=== PATIENT | female | born 1935 | race Caucasian/White ===

== ENCOUNTER 2016-05-19 10:50 | Emergency (ER) | payer MEDICARE, OTHER ==
[~2016-05-19] VITALS: Ht 162.6 cm; Wt 64.0 kg
[~2016-05-19 10:50] MED LIST: CEPH500C3 PO; ECASA PO; EZET10; MECL25 PO; TAB-TAB; ZOFR4TAB3 SL; [UNRECOGNIZED DRUG - CODE]
[2016-05-19 10:57] VITALS: BP 132/68; PULSE 84; RESP 16; TEMP 98.9
[2016-05-19] MEDS ORDERED: IBUPROFEN 800 MG TAB PO ONE (11:15)
--- NOTE | 2016-05-19 11:18 | PD ---
HPI Chief Complaint: Injury Time Seen by Provider: 11:14 Travel History International Travel<30 days: No Contact w/Intl Traveler<30days: No Traveled to known affect area: No History of Present Illness HPI Patient is an 80-year-old female who presents him for evaluation of left knee pain. Patient states she tripped on Saturday "feeling a pop". Since that time she's had painful range of motion with flexion and extension. She is able to bear weight and does perform her normal ADLs. She states the pain is a 10 out of 10 when she is ambulating. She also reports that her left lower leg has been swollen since she tripped. Patient reports a history of peripheral artery disease with stent placement. She is currently taking Plavix. She denies any head injury, loss of consciousness, she states she did not completely fall, she caught herself. She denies any chest pain, shortness of breath, back pain, abdominal pain. PFSH Past Medical History Hx Anticoagulant Therapy: Yes (plavix, asa 81mg) Cancer: No Cardiovascular Problems: Yes (htn on meds) High Cholesterol: Yes COPD: Yes Diverticulitis: Yes Endocrine: No Genitourinary: No Hypertension: Yes Musculoskeletal: No Neurologic: Yes Reproductive: No Respiratory: Yes (copd) ?: Not Past Surgical History Abdominal Surgery: Yes (COLON>DIVERTICULITIS) Appendectomy: Yes (1948) Eye Surgery: Yes (LASIK X 9 TO BILATERAL EYES) Genitourinary Surgery: Yes (BLADDER REPAIR) Hysterectomy: Yes Social History Alcohol Use: Yes (1-2 BEERS/DAY) Tobacco Use: No Substance Use: No Allergies-Medications (Allergen,Severity, Reaction): Coded Allergies: No Known Allergies (Verified , 05/19/16) Reported Meds & Prescriptions Reported Meds & Active Scripts Active Reported [cholesterol med] Lisinopril 10 Mg Tab 10 Mg PO DAILY Plavix (Clopidogrel Bisulfate) 75 Mg Tab 75 Mg PO DAILY Review of Systems Except as stated in HPI: all other systems reviewed are Neg Musculoskeletal: Positive: Myalgias, Arthralgias, Limited ROM, Edema, Pain Physical Exam Narrative GENERAL: Well-nourished, well-developed patient. SKIN: Warm and dry. HEAD: Normocephalic. EYES: No scleral icterus. No injection or drainage. NECK: Supple, trachea midline. No JVD or lymphadenopathy. CARDIOVASCULAR: Regular rate and rhythm without murmurs, gallops, or rubs. RESPIRATORY: Breath sounds equal bilaterally. No accessory muscle use. GASTROINTESTINAL: Abdomen soft, non-tender, nondistended. MUSCULOSKELETAL: No cyanosis, edema noted to the left anterior knee, and left lower leg. Positive pedal pulses. Decreased range of motion with flexion and extension. No leg length discrepancy noted. BACK: Nontender without obvious deformity. No CVA tenderness. Data Data Last Documented VS Vital Signs Date Time Temp Pulse Resp B/P Pulse Ox O2 Delivery O2 Flow Rate FiO2 05/19/16 10:57 98.9 84 16 132/68 Orders Knee, Complete (4vws) (05/19/16 ) Ibuprofen (Motrin) (05/19/16 11:15) Us Leg Venous Doppler (05/19/16 ) Ice/Cold Pack (05/19/16 11:43) MDM Medical Decision Making Medical Screen Exam Complete: Yes Emergency Medical Condition: Yes Interpretation(s) Last Impressions Knee X-Ray 05/19/16 0000 Signed Impressions: Service Date/Time: Thursday, May 19, 2016 11:21 - CONCLUSION: Small joint effusion. Mild osteoarthritis without fracture. Chondrocalcinosis. Won Miller MD Vital Signs Date Time Temp Pulse Resp B/P Pulse Ox O2 Delivery O2 Flow Rate FiO2 05/19/16 10:57 98.9 84 16 132/68 Differential Diagnosis Sprain versus strain versus fracture versus contusion versus DVT versus other Narrative Course Patient is an 80-year-old female who presented to emergency department for evaluation of left knee pain that occurred as result after tripping on Saturday. Left knee is swollen anteriorly, there is decreased range of motion. Patient has a history of PAD but does have a palpable pedal pulse. There is edema noted to the left lower leg however this started after the injury, making it less likely for patient to have a DVT. She is currently on Plavix and reports compliance. She is not taking any medications to alleviate the pain, she has not used ice or heat either. She has been applying an Rashi wrap. Imaging ordered and pending. Imaging of the left knee shows a small joint effusion with osteoporosis, no fracture identified. Due to swelling in the lower leg venous Doppler ultrasound is ordered. Discussed with my attending physician. 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 Patient is encouraged to rest, ice, elevate extremity. Patient will need to follow-up with her primary doctor or orthopedic surgeon for further evaluation and management. She is encouraged to take acetaminophen or ibuprofen as needed and as directed for pain. She is encouraged to emergency department for any new or worsening symptoms. Patient verbalized understanding of instructions. Patient stable for discharge. Diagnosis Primary Impression: Knee effusion, left Referrals: Orthopaedic Surgeon Primary Care Physician Patient Instructions: General Instructions, Knee Pain (ED), Knee Sprain (GEN), Swollen Knee Joint (GEN) Additional Instructions: Follow-up with your primary doctor Follow-up with orthopedic surgeon Alternate heat and ice to affected area, continue range of motion exercises, elevate extremity Return to emergency department for any new or worsening symptoms Take [id number] acetaminophen or ibuprofen as needed and as directed for pain Med/Other Pt SpecificInfo: No Change to Meds Disposition: 01 DISCHARGE HOME Condition: Stable sIidra Rose May 19, 2016 11:17
[2016-05-19] MEDS ORDERED: PLAV75TA29 PO (11:24)
[2016-05-19] MEDS ORDERED: cholesterol med (11:24)
[2016-05-19] MEDS ORDERED: LISI10TA3 PO (11:24)
--- NOTE | 2016-05-19 11:39 | RADHPO ---
EXAM DATE/TIME: 05/19/2016 11:21 [facility] COMPARISON: No previous studies available for comparison. INDICATIONS : Tripped. left knee pain MEDICAL HISTORY : Chronic obstructive pulmonary disease. SURGICAL HISTORY : Leg stents ENCOUNTER: Initial ACUITY: 4 - 6 days PAIN SCORE: 10/10 LOCATION: Left knee FINDINGS: Four view examination of the left knee demonstrates no evidence of fracture or dislocation. Bony min eralization is normal. Mild degenerative changes. Chondrocalcinosis. Small joint effusion. Long segm ent stent within femoral vein and smaller stent in the popliteal artery. CONCLUSION: Small joint effusion. Mild osteoarthritis without fracture. Chondrocalcinosis. Won Miller MD on May 19, 2016 at 11:37 Board Certified Radiologist. This report was verified electronically.
--- NOTE | 2016-05-19 12:34 | RADHPO ---
EXAM DATE/TIME: 05/19/2016 12:13 [facility] COMPARISON: No previous studies available for comparison. INDICATIONS : Left leg pain and swelling. MEDICAL HISTORY : Chronic obstructive pulmonary disease. Hypertension. Hypercholesterolemia. Anticoagulant therapy, Plavix and Aspirin. Diverticulitis. Peripheral vascular disease. SURGICAL HISTORY : Appendectomy. Hysterectomy. Bilateral Lasik surgery. Bladder repair. Peripheral artery stent placem ents. ENCOUNTER: Initial ACUITY: 4 - 6 days PAIN SCORE: 10/10 LOCATION: Left leg. TECHNIQUE: Venous ultrasound of the leg was performed from the inguinal ligament to the proximal calf. Real-leonard e, color Doppler and spectral tracing, compression and augmentation techniques were used. FINDINGS: There is normal compressibility of the deep venous system from the inguinal region to the proximal ca lf. No echogenic clot is seen in the lumen of the common femoral, femoral, popliteal, and posterior tibial veins. There is a normal response of the venous system to proximal and distal augmentation an d respiration. CONCLUSION: 1. No DVT in the left leg. 2. 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 Won Miller MD on May 19, 2016 at 12:32 Board Certified Radiologist. This report was verified electronically.
== END 2016-05-19 12:59 | disposition home or self-care (01) ==
LOC: PHEFT 10:50
DX: M25.462 Effusion, left knee (principal); R60.0 Localized edema; I73.9 Peripheral vascular disease, unspecified; Z79.02 Long term (current) use of antithrombotics/antiplatelets; I10 Essential (primary) hypertension; E78.00 Pure hypercholesterolemia, unspecified; J44.9 Chronic obstructive pulmonary disease, unspecified; W18.09XA Striking against other object with subsequent fall, initial encounter
CPT/HCPCS: 73564; 93971